=== PATIENT | male | born 1965 | race American Indian/Alaskan Native ===

== ENCOUNTER 2018-10-22 22:28 | Emergency (ER) | payer BC, OTHER ==
[2018-10-22 23:41] LABS: Basophils % (Auto) 0.4 % (0.0-1.8); Eosinophils # (Auto) 0.4 K/mm3 (0.0-0.4); Eosinophils % (Auto) 4.3 % (0.0-4.3); Hematocrit 42.1 % (35.5-45.6); Hemoglobin 13.6 gm/dl (11.8-15.2); Lymphocytes # (Auto) 2.9 K/mm3 (1.2-5.4); Lymphocytes % (Auto) 29.7 % (13.4-35.0); Mean Corpuscular HGB Conc 32 % (32-34); Mean Corpuscular Volume 86 fl (84-94); Monocytes # (Auto) 0.7 K/mm3 (0.0-0.8); Monocytes % (Auto) 7.6 % (0.0-7.3); Platelet Count 237 K/mm3 (140-440); Red Blood Count 4.88 M/mm3 (3.65-5.03); Red Cell Distribution Width 12.9 % (13.2-15.2)
[2018-10-22 23:59] LABS: BUN/Creatinine Ratio 27; Blood Urea Nitrogen 24 mg/dL (9-20); Calcium 9.1 mg/dL (8.4-10.2); Hemolysis Index 24
--- NOTE | 2018-10-23 00:40 | Cat Scan Report ---
FINAL REPORT PROCEDURE: CT HEAD/BRAIN WO CON TECHNIQUE: Computerized tomography of the head was performed without contrast material. HISTORY: headache COMPARISON: No prior studies are available for comparison. FINDINGS: Skull and scalp: Normal. Paranasal sinuses: Normal. Ventricles and subarachnoid spaces: Normal. Cerebrum: No evidence of hemorrhage, acute infarction or mass . Cerebellum and brainstem: No evidence of hemorrhage, acute infarction or mass. Vasculature: Normal. Comments: None. IMPRESSION: There is no evidence an acute intracranial process.
[2018-10-23] MEDS ORDERED: PERCOCET 5/325 PO STA (02:02)
--- NOTE | 2018-10-23 02:13 | Emergency Department Report ---
ED Headache HPI - General Chief Complaint: Dizziness Stated Complaint: HEADACHE/DIZZINESS Time Seen by Provider: 10/23/18 02:02 - History of Present Illness Initial Comments: 52-year-old -[place] male presents emerge department complaining of a few day history of dull throbbing headache, right-sided. Headache is been off and on for about the last month and a half which she had initially had evaluated at the [facility]. Stated he had a CAT scan that was negative and they diagnosed him with a migraine and gave him some medications for sinus infections, but his symptoms continue to persist. Since that time. He has not followed up with the specialist has not been on any home medications for his migraines. Pain is dull and throbbing, worse with some white and some sound. No nausea, vomiting, is appreciated reports no fever, chills, sweats, chest pain, palpitations, coryza. No hemoptysis. No hematemesis, no hematochezia, no blurry vision, no change in his blood pressure. Denies any new medications nor trauma. The headache is mild, rating a 2/10, but when the pain does flareup. It does increase to 8. Quality: moderate Head Injury Location: parietal Recent Head Trauma: no recent headache/trauma Associated Symptoms: sinus infection (was diagnosed with sinusitis about a month and half ago and also GERD treated for peptic ulcer). denies: facial pain, fever/chills, nasal congestion, nasal drainage, stiff neck, vision changes Allergies/Adverse Reactions: Allergies trazodone Allergy (Verified 10/22/18 22:33) Anaphylaxis Home Medications: Ambulatory Orders Butalb/Acetaminophen/Caffeine [Fioricet 50-300-40 mg CAP] 1 cap PO Q8HR PRN #15 cap 10/23/18 ED Review of Systems ROS: Stated complaint: HEADACHE/DIZZINESS Other details as noted in HPI Constitutional: denies: chills, fever Eyes: denies: eye pain, eye discharge, vision change ENT: denies: ear pain, throat pain Respiratory: denies: cough, shortness of breath, wheezing Cardiovascular: denies: chest pain, palpitations Endocrine: no symptoms reported Gastrointestinal: denies: abdominal pain, nausea, diarrhea Genitourinary: denies: urgency, dysuria Musculoskeletal: denies: back pain, joint swelling, arthralgia Skin: denies: rash, lesions Neurological: headache. denies: weakness, paresthesias Psychiatric: denies: anxiety, depression Hematological/Lymphatic: denies: easy bleeding, easy bruising ED Past Medical Hx - Past Medical History Hx GERD: Yes Additional medical history: H.pylori - Surgical History Past Surgical History?: Yes Additional Surgical History: Tonsillectomy - Social History Smoking Status: Current Every Day Smoker Substance Use Type: Alcohol - Medications Home Medications: Home Medications Medication Instructions Recorded Confirmed Last Taken Type Butalb/Acetaminophen/Caffeine 1 cap PO Q8HR PRN #15 cap 10/23/18 Unknown Rx [Fioricet 50-300-40 mg CAP] ED Physical Exam - General Limitations: No Limitations General appearance: alert, in no apparent distress - Head Head exam: Present: atraumatic, normocephalic - Eye Eye exam: Present: normal appearance, PERRL, EOMI. Absent: scleral icterus, conjunctival injection, nystagmus, periorbital swelling, periorbital tenderness Pupils: Present: normal accommodation, other (negative funduscopic examination) - ENT ENT exam: Present: normal exam, mucous membranes moist - Neck Neck exam: Present: normal inspection, full ROM. Absent: tenderness, meningismus, lymphadenopathy, thyromegaly - Respiratory Respiratory exam: Present: normal lung sounds bilaterally. Absent: respiratory distress - Cardiovascular Cardiovascular Exam: Present: regular rate, normal rhythm. Absent: systolic murmur, diastolic murmur, rubs, gallop - GI/Abdominal GI/Abdominal exam: Present: soft, normal bowel sounds - Rectal Rectal exam: Present: deferred - Extremities Exam Extremities exam: Present: normal inspection - Back Exam Back exam: Present: normal inspection - Neurological Exam Neurological exam: Present: alert, oriented X3 - Psychiatric Psychiatric exam: Present: normal affect, normal mood - Skin Skin exam: Present: warm, dry, intact, normal color. Absent: rash ED Course Vital Signs 10/22/18 22:58 Temperature 97.7 F Pulse Rate 89 Respiratory 18 Rate Blood Pressure 146/92 O2 Sat by Pulse 99 Oximetry ED Medical Decision Making - Lab Data Result diagrams: 10/22/18 23:17 10/22/18 23:17 - Radiology Data Radiology results: report reviewed (negative CT scan findings) - Medical Decision Making The patient the need to follow-up with neurology is a hospital provided definitive management. Also advised him need to keep a headache diary. Advised to return to emergency department should his headache worsen, he denies any passing out, numbness, tingling, vision changes. Or anything to suggest a symptoms are worsening - Differential Diagnosis malignancy, migraine, aneurysm, tension headache Critical care attestation.: If time is entered above; I have spent that time in minutes in the direct care of this critically ill patient, excluding procedure time. ED Disposition Clinical Impression: Cephalgia Disposition: DC- TO HOME OR SELFCARE Is pt being admited?: No Does the pt Need Aspirin: No Condition: Stable Instructions: Viral Meningitis (ED), Cluster Headache (ED), Acute Headache (ED) Prescriptions: Butalb/Acetaminophen/Caffeine [Fioricet 50-300-40 mg CAP] 1 cap PO Q8HR PRN #15 cap PRN Reason: Headache Referrals: [facility] [Provider Group] - 3-5 Days [facility] [Provider Group] - 3-5 Days JAMAICA LUNA MD [Staff Physician] - 3-5 Days JANUSZ GALVAN MD [Referring] - 3-5 Days
[2018-10-23 07:34] VITALS: BP 109/70
== END 2018-10-23 04:00 | disposition home or self-care (01) ==
LOC: ED 22:28
DX: R51 Headache (principal); K21.9 Gastro-esophageal reflux disease without esophagitis; Z90.89 Acquired absence of other organs; F17.200 Nicotine dependence, unspecified, uncomplicated; Z88.2 Allergy status to sulfonamides
CPT/HCPCS: 36415; 70450; 80048; 85025; 93005; 93010

== ENCOUNTER 2020-01-23 19:33 | Emergency (ER) | payer BC, OTHER ==
[2020-01-23 20:02] VITALS: BP 124/74
--- NOTE | 2020-01-23 22:24 | Emergency Department Report ---
ED Neck Pain/Injury HPI - General Chief Complaint: Sore Throat Stated Complaint: NECK PAIN Time Seen by Provider: 01/23/20 22:02 Mode of arrival: Ambulatory Limitations: No Limitations - History of Present Illness MD Complaint: neck pain -: Gradual Place: home Radiation: right lateral Severity: mild, moderate Consistency: constant Improves With: none Worsens With: none Associated Symptoms: none Treatments Prior to Arrival: none - Related Data Previous Rx's Medication Instructions Recorded Last Taken Type Butalb/Acetaminophen/Caffeine 1 cap PO Q8HR PRN #15 cap 10/23/18 Unknown Rx [Fioricet 50-300-40 mg CAP] Allergies Allergy/AdvReac Type Severity Reaction Status Date / Time trazodone Allergy Anaphylaxis Verified 10/22/18 22:33 ED Review of Systems ROS: Stated complaint: NECK PAIN Other details as noted in HPI Comment: All other systems reviewed and negative ED Past Medical Hx - Past Medical History Hx GERD: Yes Additional medical history: H.pylori - Surgical History Additional Surgical History: Tonsillectomy - Social History Smoking Status: Current Every Day Smoker Substance Use Type: Alcohol - Medications Home Medications: Home Medications Medication Instructions Recorded Confirmed Last Taken Type Butalb/Acetaminophen/Caffeine 1 cap PO Q8HR PRN #15 cap 10/23/18 Unknown Rx [Fioricet 50-300-40 mg CAP] ED Physical Exam - General Limitations: No Limitations General appearance: alert, in no apparent distress - Head Head exam: Present: atraumatic, normocephalic - Eye Eye exam: Present: normal appearance, PERRL, EOMI Pupils: Present: normal accommodation - ENT ENT exam: Present: normal exam, normal orophraynx, mucous membranes moist, TM's normal bilaterally, other (Pharynx clear airway patent) - Neck Neck exam: Present: normal inspection, full ROM. Absent: meningismus, lymphadenopathy, thyromegaly - Respiratory Respiratory exam: Present: normal lung sounds bilaterally. Absent: respiratory distress - Cardiovascular Cardiovascular Exam: Present: regular rate, normal rhythm. Absent: systolic murmur, diastolic murmur, rubs, gallop - GI/Abdominal GI/Abdominal exam: Present: soft, normal bowel sounds - Rectal Rectal exam: Present: deferred - Extremities Exam Extremities exam: Present: normal inspection - Back Exam Back exam: Present: normal inspection - Neurological Exam Neurological exam: Present: alert, oriented X3 - Psychiatric Psychiatric exam: Present: normal affect, normal mood - Skin Skin exam: Present: warm, dry, intact, normal color. Absent: rash ED Course Vital Signs 01/23/20 19:59 Temperature 98.2 F Pulse Rate 80 Respiratory 18 Rate Blood Pressure 124/74 O2 Sat by Pulse 97 Oximetry Critical care attestation.: If time is entered above; I have spent that time in minutes in the direct care of this critically ill patient, excluding procedure time. ED Disposition Clinical Impression: Chronic neck pain Disposition: - TO HOME OR SELFCARE Is pt being admited?: No Does the pt Need Aspirin: No Condition: Stable Instructions: Chronic Pain (ED) Additional Instructions: Please follow-up with 1 of the listed ear nose and throat doctors for further evaluation of your chronic throat pain. Is recommended that you follow-up with them to receive further evaluation. There is likely you will receive a scope on MRI of this region Referrals: PRIMARY CARE, [Primary Care Provider] - 3-5 Days [place] KWOK MD [Staff Physician] - 2-3 Days CHASIDY CARLOS MD [Staff Physician] - 2-3 Days
--- NOTE | 2020-01-23 22:55 | XRay Report ---
SOFT TISSUES NECK 2233 INDICATION: MAIN: right sided pain x I month no know injury COMPARISON: None available. FINDINGS: No soft tissue swelling is seen. No foreign bodies are obvious. No obvious airway impingeme nt is seen. Minimal cervical degenerative changes are noted. Signer Name: Sancho Law MD Signed: 01/23/2020 10:50 PM Workstation Name: [id number]
== END 2020-01-23 22:59 | disposition home or self-care (01) ==
LOC: ED 19:33
DX: M54.2 Cervicalgia (principal); G89.29 Other chronic pain; K21.9 Gastro-esophageal reflux disease without esophagitis; F17.200 Nicotine dependence, unspecified, uncomplicated; Z90.89 Acquired absence of other organs; Z79.899 Other long term (current) drug therapy; Z88.8 Allergy status to other drugs, medicaments and biological substances
CPT/HCPCS: 70360

== ENCOUNTER 2022-05-22 11:07 | Emergency (ER) | payer OTHER ==
[2022-05-22] MEDS ORDERED: ACETAMINOPHEN 325 MG TAB PO ONE (15:12)
--- NOTE | 2022-05-22 15:56 | Emergency Department Report ---
- General Chief Complaint: Upper Respiratory Infection Stated Complaint: SORE THROAT/SORE MUSCLES/HEADACHE Source: patient Mode of arrival: Ambulatory Limitations: No Limitations - History of Present Illness Initial Comments: 56-year-old male presents to the ED complaining of sore throat, headache,and bilateral ear pain x2-week. Patient states taking [id number]-[id number]-[id number] medication without any relief. Patient states symptoms are worsen when he is at work. Patient denies any nausea or vomiting at present time. Patient denies any chest pain or shortness of breath at present time. Patient is alert and oriented x3. No acute distress noted. No ill appearance noted. MD Complaint: sore throat, rhinorrhea, nasal congestion, sinus pain Onset/Timin -: week(s) Severity: mild Improves With: nothing Worsens With: nothing Associated Symptoms: denies other symptoms. denies: myalgias, diaphoresis, cough, shortness of breath, abdominal pain, confusion - Related Data Previous Rx's Medication Instructions Recorded Last Taken Type Butalb/Acetaminophen/Caffeine 1 cap PO Q8HR PRN #15 cap 10/23/18 Unknown Rx [Fioricet 50-300-40 mg CAP] Amoxicillin/K Clav Tab [Augmentin 1 tab PO Q12HR 10 Days #20 tab 05/22/22 Unknown Rx 875 mg] methylPREDNISolone [Medrol 4MG 4 mg PO DAILY 6 Days #21 tab 05/22/22 Unknown Rx DOSEPAK (21 tabs)] Allergies Allergy/AdvReac Type Severity Reaction Status Date / Time trazodone Allergy Anaphylaxis Verified 05/22/22 11:11 ED Review of Systems ROS: Stated complaint: SORE THROAT/SORE MUSCLES/HEADACHE Other details as noted in HPI Constitutional: denies: chills, fever Eyes: denies: eye pain, eye discharge, vision change ENT: ear pain, throat pain Respiratory: denies: cough, shortness of breath, wheezing Cardiovascular: denies: chest pain, palpitations Endocrine: no symptoms reported Gastrointestinal: denies: abdominal pain, nausea, diarrhea Genitourinary: denies: urgency, dysuria Musculoskeletal: denies: back pain, joint swelling, arthralgia Skin: denies: rash, lesions Neurological: headache. denies: weakness, paresthesias Psychiatric: denies: anxiety, depression Hematological/Lymphatic: denies: easy bleeding, easy bruising ED Past Medical Hx - Past Medical History Hx GERD: Yes Additional medical history: H.pylori - Surgical History Additional Surgical History: Tonsillectomy - Social History Smoking Status: Current Every Day Smoker Substance Use Type: Alcohol - Medications Home Medications: Home Medications Medication Instructions Recorded Confirmed Last Taken Type Butalb/Acetaminophen/Caffeine 1 cap PO Q8HR PRN #15 cap 10/23/18 Unknown Rx [Fioricet 50-300-40 mg CAP] Amoxicillin/K Clav Tab [Augmentin 1 tab PO Q12HR 10 Days #20 tab 05/22/22 Unknown Rx 875 mg] methylPREDNISolone [Medrol 4MG 4 mg PO DAILY 6 Days #21 tab 05/22/22 Unknown Rx DOSEPAK (21 tabs)] ED Physical Exam - General Limitations: No Limitations General appearance: alert, in no apparent distress - Head Head exam: Present: atraumatic, normocephalic - Eye Eye exam: Present: normal appearance - ENT ENT exam: Present: mucous membranes moist - Expanded ENT Exam Expanded TM/Canal exam: Mastoid Tenderness: Right TM, Left TM (frontal ) - Neck Neck exam: Present: normal inspection - Respiratory Respiratory exam: Present: normal lung sounds bilaterally. Absent: respiratory distress - Cardiovascular Cardiovascular Exam: Present: regular rate, normal rhythm. Absent: systolic murmur, diastolic murmur, rubs, gallop - GI/Abdominal GI/Abdominal exam: Present: soft, normal bowel sounds - Rectal Rectal exam: Present: deferred - Extremities Exam Extremities exam: Present: normal inspection - Back Exam Back exam: Present: normal inspection - Neurological Exam Neurological exam: Present: alert, oriented X3 - Psychiatric Psychiatric exam: Present: normal affect, normal mood - Skin Skin exam: Present: warm, dry, intact, normal color. Absent: rash ED Course Vital Signs 05/22/22 11:12 Temperature 99.7 F H Pulse Rate 103 H Respiratory 18 Rate Blood Pressure 119/91 O2 Sat by Pulse 97 Oximetry ED Medical Decision Making - Medical Decision Making 56-year-old male presents to the ED complaining of sore throat, headache,and bilateral ear pain x2-week. Patient states taking [id number] medication without any relief. Patient states symptoms are worsen when he is at work. Patient denies any nausea or vomiting at present time. Patient denies any chest pain or shortness of breath at present time. Patient is alert and oriented x3. No acute distress noted. No ill appearance noted. Physical examination patient has tenderness noted to the frontal sinus cavity upon palpation and ,postnasal drip. Rechecked the patient is resting quietly , comfortable and feeling better. I discussed the results of diagnostic study, my clinical impression and the plan for further treatment with the patient. Patient agrees with plan and discharge at this present time. All question addressed. I have given the patient instruction regarding a diagnosis ,expectation ,follow- up and return precaution. I explained to the patient that emergent condition may arise and to return to the ED for new worsen and any new persisting condition. I have explained the importance of following up with the primary care physician or referral physician listed below has instructed. The patient verbalized understanding of discharge instruction. Critical care attestation.: If time is entered above; I have spent that time in minutes in the direct care of this critically ill patient, excluding procedure time. ED Disposition Clinical Impression: Acute sinusitis Qualifiers: Sinusitis location: frontal Recurrence: non-recurrent Qualified Code(s): J01.10 - Acute frontal sinusitis, unspecified Disposition: 01 HOME / SELF CARE / HOMELESS Is pt being admited?: No Does the pt Need Aspirin: No Condition: Stable Instructions: Sinusitis, Adult, [id number] Additional Instructions: Take medication as prescribed Return to ED for any worsening symptom Take [id number] Tylenol for fever Prescriptions: Amoxicillin/K Clav Tab [Augmentin 875 mg] 1 tab PO Q12HR 10 Days #20 tab methylPREDNISolone [Medrol 4MG DOSEPAK (21 tabs)] 4 mg PO DAILY 6 Days #21 tab Referrals: [facility] [Provider Group] - 3-5 Days Forms: Work/School Release Form(ED) Time of Disposition: 16:01
[2022-05-22 16:37] VITALS: BP 118/82
== END 2022-05-22 16:23 | disposition home or self-care (01) ==
LOC: ED 11:07
DX: J01.90 Acute sinusitis, unspecified (principal); F17.200 Nicotine dependence, unspecified, uncomplicated; F12.90 Cannabis use, unspecified, uncomplicated; Z88.8 Allergy status to other drugs, medicaments and biological substances
CPT/HCPCS: 99282